=== PATIENT | male | born 1995 | race Two or more races ===

== ENCOUNTER 2018-07-17 11:49 | Emergency (ER) | payer SELFPAY ==
[~2018-07-17] VITALS: Ht 185.4 cm; Wt 65.8 kg
[2018-07-17 11:49] VITALS: BP 130/65
== END 2018-07-17 13:20 | disposition other institution (70) ==
LOC: ER 11:52
DX: S30.1XXA Contusion of abdominal wall, initial encounter (principal); F17.200 Nicotine dependence, unspecified, uncomplicated; Z60.2 Problems related to living alone; W22.8XXA Striking against or struck by other objects, initial encounter; Y93.89 Activity, other specified; Y92.89 Other specified places as the place of occurrence of the external cause; Y99.8 Other external cause status
CPT/HCPCS: 71250; 74176; 99285; A4606; Z7610

== ENCOUNTER 2018-07-17 20:26 | Emergency (ER) | payer OTHER ==
[~2018-07-17] VITALS: Ht 185.4 cm; Wt 63.5 kg
--- NOTE | 2018-07-17 20:36 | NUR ---
PT BIB [employer] IN CUSTODY FOR C/O MID ABD PAIN W/ REPORTED N/V X TODAY. PT AGITATED, RESTLESS, YELLING "I NEED WATER! I NEED WATER!" RESP EVEN & UNLABORED, ABLE TO SPEAK FULL & COMPLETE SENTENCES, DRY HEAVING, LYING ON LT SIDE POSITION W/ SOME DISCOMFORT NOTED. DR. GARCIA AT BEDSIDE FOR FURTHER EVAL.
[2018-07-17] MEDS ORDERED: HALOPERIDOL LACTATE INJ 5 MG/ML VIAL ONE (20:38)
--- NOTE | 2018-07-17 20:39 | NUR ---
Pt continues to be restless, agitated, yelling "I need water! I need water!", attempting to kick staff. pt medicated as ordered for agitation. pt handcuffed to siderails by [employer], on continuous monitoring. [employer] continue to be at bedside.
[2018-07-17] MEDS ORDERED: HALOPERIDOL LACTATE INJ 5 MG/ML VIAL IM ONE (21:00)
--- NOTE | 2018-07-17 21:00 | NUR ---
LUCIA started, labs drawn & sent to lab.
[2018-07-17 21:05] LABS: BASOPHILS % (AUTO) 0.1 % (0.0-2.0); EOSINOPHILS % (AUTO) 0.1 % (0.0-6.0); HEMATOCRIT 48 % (39-51); HEMOGLOBIN 16.3 g/dL (13.5-17.5); LYMPHOCYTES # (AUTO) 0.6 /CMM (0.8-4.8); LYMPHOCYTES % (AUTO) 4.5 % (20.0-44.0); MEAN CORPUSCULAR HGB CONC 34 g/dl (31.0-36.0); MEAN CORPUSCULAR VOLUME 90 fL (80-96); MONOCYTES % (AUTO) 7.5 % (2.0-12.0); NEUTROPHILS # (AUTO) 11.6 /CMM (1.8-8.9); NEUTROPHILS % (AUTO) 87.8 % (43.0-81.0); PLATELET COUNT (AUTO) 322 /CMM (150-450); RED BLOOD CELL COUNT(AUTO) 5.28 MIL/uL (4.5-6.0); WHITE BLOOD COUNT (AUTO) 13.2 K/uL (4.3-11.0)
[2018-07-17 21:22] LABS: CALCIUM, SERUM 9.7 mg/dL (8.5-10.1); CREATININE 1.2 mg/dL (0.6-1.3); POTASSIUM 4.3 mmol/L (3.5-5.1)
[2018-07-17 21:27] LABS: ALBUMIN 4.8 g/dL (3.4-5.0); BILIRUBIN,DIRECT 0.2 mg/dL (0.0-0.2); BILIRUBIN,TOTAL 0.7 mg/dL (0.2-1.0); TOTAL PROTEIN, SERUM 8.3 g/dL (6.4-8.2)
--- NOTE | 2018-07-17 21:34 | NUR ---
pt on lt side lying, position, w/ resp even & unlabored, nad noted. pt refusing CT scan. Dr. Miller notified, at bedside talking w/ pt.
--- NOTE | 2018-07-17 21:37 | NUR ---
Pt requesting for water. pt advised unable to have anything to eat or drink at this time, need to have CT scan done first. pt continues to refuse CT scan, or any further testing. Dr. Miller notified.
[2018-07-17] MEDS ORDERED: IOHEXOL-300 100 ML VIAL IV ONE (21:40)
--- NOTE | 2018-07-17 21:48 | NUR ---
Pt sent to CT via [facility] w/ resp even & unlabored, nad noted.
[2018-07-17] MEDS ORDERED: LORAZEPAM INJ 2 MG/ML VIAL ONE (21:52)
[2018-07-17] MEDS ORDERED: ONDANSETRON HCL/PF - ER 4 MG/2 ML VIAL IV ONE ×2 (22:00→23:00)
--- NOTE | 2018-07-17 22:08 | NUR ---
Pt given water, ok per Dr. Miller. pt sitting up in bed, drinking w/ no aspiration of flds noted. pt continues to be in custody w/ [employer] at bedside.
[2018-07-17] MEDS ORDERED: ONDANSETRON HCL/PF 4 MG/2 ML VIAL ONE ×2 (22:10→23:17)
--- NOTE | 2018-07-17 22:19 | NUR ---
pt actively vomiting. medicated as ordered for continued N/V.
[2018-07-17 23:00] VITALS: BP 132/68
[2018-07-17] MEDS ORDERED: IV NS 0.9% 1,000 ML BAG IV ONE (23:00)
--- NOTE | 2018-07-17 23:06 | NUR ---
Chris line up machine operator on phone for report given to Robert Washburn RN at [facility], accepted by Dr. Malhotra for higher level of care. Dx: Hepatic Contusion
--- NOTE | 2018-07-17 23:21 | NUR ---
pt found sitting up in bed, sticking finger to back of throat, attempting to force self to vomit, stating "I need to vomit. It makes me feel better." pt instructed not to force himself to vomit. Dr. Miller updated on pt status.
--- NOTE | 2018-07-17 23:26 | NUR ---
Report given to Flako EMT for pt transfer via ALS ambulance to [facility] for higher level of care. pt lying in bed w/ resp even & unlabored, nad noted. pt remains in [employer] custody during transfer of pt to [facility].
--- NOTE | 2018-07-17 23:26 | NUR ---
Note frannie in EDM - 07/17/18 at 2335 by TRA Report given to MURIEL Arriola for pt transfer via ALS ambulance to [facility] for higher level of care. pt lying in bed w/ resp even & unlabored, nad noted.
== END 2018-07-17 23:38 | disposition short-term general hospital (02) ==
LOC: ER 20:27
DX: S36.112A Contusion of liver, initial encounter (principal); R74.0 Nonspecific elevation of levels of transaminase and lactic acid dehydrogenase [LDH]; R11.10 Vomiting, unspecified; D72.829 Elevated white blood cell count, unspecified; F17.200 Nicotine dependence, unspecified, uncomplicated; Z60.2 Problems related to living alone; Y04.0XXA Assault by unarmed brawl or fight, initial encounter; Y93.89 Activity, other specified; Y92.89 Other specified places as the place of occurrence of the external cause; Y99.8 Other external cause status
CPT/HCPCS: 36415; 74177; 80048; 80076; 83690; 85025; 85730; 96372; 96374; 99285; A4606; J1630; J2405; J7030; Q9967; Z7610; J2060